=== PATIENT | male | born 1960 | race Caucasian/White ===

== ENCOUNTER 2017-05-22 11:57 | Inpatient (IN) | payer BC ==
--- NOTE | 2017-05-22 12:18 | EDM.PDOC ---
ED HPI GENERAL MEDICAL PROBLEM - General Chief Complaint: Cardiovascular Problem Stated Complaint: HIGH BLOOD PRESSURE Time Seen by Provider: 05/22/17 12:12 Source of Information: Reports: Patient History Limitations: Reports: No Limitations - History of Present Illness INITIAL COMMENTS - FREE TEXT/NARRATIVE: 57-year-old male attends the ED with complaints of persistent nausea and vomiting and diarrhea for the last 3-1/2 days. He shouldn't travel from [place] by air to [place] to work. He believes he may have gotten into some bad food through [employer] a hamburger while upper with double cheese in the airport before he left [place]. The following day he developed acute onset of nausea vomiting and diarrhea. He has been able to keep down small quantities of Bath and water. Diarrhea is profuse and high-volume fluid loss without blood. He's had on average of 10 bowel movements per day 3 days. Of note he is type II diabetic on metformin and glipizide. Blood sugar this morning was 72. He did take some sips of apple juice which didn't stay down. He checked his blood pressure and it's been steadily going up the last 2 days. Currently it's 226/120. Heart rate was 125 it appears to be sinus tachycardia with a first-degree AV block. He is a little lightheaded and dizzy mildly nauseated. He is on losartan for his blood pressure 100 mg a day and he took an extra 50 mg this morning. Diarrhea has continued no blood in he's never vomited any blood. Onset: Sudden Onset Date: 05/19/17 (Sudden onset of nausea vomiting and diarrhea.) Duration: Day(s):, Constant Location: Reports: Abdomen Quality: Reports: Ache, Other Improves with: Reports: None Worsens with: Reports: Eating Context: Reports: Sick Contact. Denies: Activity, Exercise, Lifting, Trauma, Other Associated Symptoms: Reports: Fever/Chills, Malaise, Nausea/Vomiting (Chills but no fever intractable.), Shortness of Breath, Other (Severe diarrhea with large-volume water loss per rectum.). Denies: Chest Pain, Cough, cough w sputum Treatments STEAM HAND: Reports: Other (see below) Other Treatments STEAM HAND: losartan 150 mg - Related Data Allergies Allergy/AdvReac Type Severity Reaction Status Date / Time No Known Allergies Allergy Verified 05/22/17 12:04 Home Meds: Home Meds Lansoprazole [Prevacid] 30 mg PO DAILY 08/03/14 [History] Simvastatin [Zocor] 80 mg PO DAILY 08/03/14 [History] glipiZIDE [Glucotrol XL] 5 mg PO QID 08/03/14 [History] metFORMIN [Glucophage XR] 500 mg PO QID 08/03/14 [History] Past Medical History Cardiovascular History: Reports: Hypertension Musculoskeletal History: Reports: Back Pain, Chronic (Back surgery in the past) , Osteoarthritis (Has had knee surgery.) Endocrine/Metabolic History: Reports: Diabetes, Type II (Diagnosed about 4 years ago and in is on metformin and glipizide.) Social & Family History - Tobacco Use Smoking Status *Q: Never Smoker - Alcohol Use Days Per Week of Alcohol Use: 1 Number of Drinks Per Day: 2 Total Drinks Per Week: 2 - Recreational Drug Use Recreational Drug Use: No - Living Situation & Occupation Living situation: Reports: Occupation: Employed ED ROS GENERAL - Review of Systems Review Of Systems: See Below Constitutional: Reports: Chills, Malaise, Weakness, Fatigue, Weight Loss. Denies: Fever HEENT: Reports: No Symptoms Respiratory: Reports: Shortness of Breath (Mild) Cardiovascular: Reports: Blood Pressure Problem (Blood pressure has been steadily going upwards the last), Lightheadedness. Denies: Chest Pain, Claudication ( 2 days.), Dyspnea on Exertion, Edema, Orthopnea (Mild when standing), Palpitations Endocrine: Reports: Fatigue, Low Glucose GI/Abdominal: Reports: Abdominal Pain (Very mild cramping at times.), Diarrhea ( Large-volume water loss per rectum without blood.), Nausea, Vomiting (Comes and goes intermittent nausea and vomiting for 3 days.) : Reports: Other (Urine is very dark in color and ulloa when he voids.) Musculoskeletal: Reports: Shoulder Pain, Back Pain, Joint Pain (Knees and hips.) Skin: Reports: No Symptoms Neurological: Reports: No Symptoms Psychiatric: Reports: No Symptoms Hematologic/Lymphatic: Reports: No Symptoms Immunologic: Reports: No Symptoms ED EXAM, GENERAL - Physical Exam Exam: See Below Exam Limited By: No Limitations General Appearance: Alert, WD/WN, No Apparent Distress, Other (I can smell ketones on his breath.) Eye Exam: Bilateral Eye: Normal Inspection Throat/Mouth: Normal Teeth (Tongue is dry and coated.), Other Head: Atraumatic, Normocephalic Neck: Normal Inspection, Supple, Non-Tender, Full Range of Motion. No: Carotid Bruit, Lymphadenopathy (L), Lymphadenopathy (R) Respiratory/Chest: Lungs Clear (Mild tachypnea at rest 22-24/m.), Normal Breath Sounds, No Accessory Muscle Use, Chest Non-Tender, Respiratory Distress Cardiovascular: No Edema, No Gallop, No JVD, No Murmur, No Rub, Tachycardia ( Tachycardia of 1 26/m at rest). No: Normal Peripheral Pulses Peripheral Pulses: 1+: Posterior Tibial (L) (Peripherally vasoconstricted), Posterior Tibial (R), Dorsalis Pedis (L), Dorsalis Pedis (R) GI/Abdominal: Normal Bowel Sounds, Soft, Non-Tender, No Organomegaly, No Distention, No Abnormal Bruit, No Mass, Other (No previous abdominal surgery.). No: Rigid, Rebound, Tender (Male) Exam: No Hernia Back Exam: Normal Inspection, Full Range of Motion. No: CVA Tenderness (L), CVA Tenderness (R) Extremities: Normal Inspection, Normal Range of Motion, Non-Tender, No Pedal Edema, Normal Capillary Refill Neurological: Alert, Oriented, CN II-XII Intact, Normal Cognition, Normal Gait Psychiatric: Normal Affect, Normal Mood Skin Exam: Warm, Dry, Intact, Normal Color, No Rash EKG INTERPRETATION EKG Date: 05/22/17 Time: 12:10 Rhythm: Other Rate (Beats/Min): 122 [place]: Normal P-Wave: Present (Borderline first-degree AV block.) QRS: Other (There is a Q-wave in V1 and a near Q-wave in V2 and V3 suggesting an old anteroseptal myocardial infarction. There is poor R-wave progression. There is Q-wave in lead 3 and aVF suggesting possible old inferior wall myocardial infarction.) ST-T: Elevated (Slight ST segment elevation appreciated in leads 3 and aVF.) QT: Normal Course - Vital Signs Last Recorded V/S: Last Vital Signs Temp 36.0 C 05/22/17 12:05 Pulse 87 05/22/17 15:17 Resp 21 H 05/22/17 12:05 BP 171/104 H 05/22/17 15:17 Pulse Ox 98 05/22/17 12:05 - Orders/Labs/Meds Orders: Active Orders 24 hr Category Date Time Status Blood Glucose Check, Bedside [RC] ONETIME Care 05/22/17 12:19 Active EKG 12 Lead [EKG Documentation Completion] [RC] STAT Care 05/22/17 12:15 Active C DIFFICILE BY PCR W/NAP1 [MOLEC] Stat Lab 05/22/17 12:20 Ordered CULTURE BLOOD [BC] Stat Lab 05/22/17 12:50 Received CULTURE BLOOD [BC] Stat Lab 05/22/17 13:00 Received CULTURE STOOL + SHIGATOX [RM] Stat Lab 05/22/17 12:19 Uncollected WBC, STOOL [OP] Stat Lab 05/22/17 12:19 Uncollected Labetalol [Normodyne] 100 mg Med 05/22/17 12:30 Active Sodium Chloride 0.9% [Normal Saline] 80 ml IV TITRATE Sodium Chloride 0.9% [Normal Saline] 1,000 ml Med 05/22/17 12:30 Active IV ASDIRECTED Sodium Chloride 0.9% [Normal Saline] 1,000 ml Med 05/22/17 14:15 Active IV ASDIRECTED Blood Culture x2 Reflex Set [OM.PC] Stat Oth 05/22/17 12:19 Ordered Medication Orders Dextrose/Water (Dextrose 50% In Water) 50 ml IVPUSH ASDIRECTED PRN PRN Reason: Hypoglycemia Doxazosin Mesylate (Cardura) 2 mg PO BEDTIME KELLY Sodium Chloride (Normal Saline) 1,000 mls @ 999 mls/hr IV ASDIRECTED KELLY Last Admin: 05/22/17 12:37 Dose: 999 mls/hr Labetalol HCl 100 mg/ Sodium (Chloride) 100 mls @ 120 mls/hr IV TITRATE KELLY; 2 MG/MIN PRN Reason: Protocol Last Admin: 05/22/17 15:17 Dose: 1 mg/min, 60 mls/hr Titration: 05/22/17 14:40 Dose: 1 mg/min, 60 mls/hr Admin: 05/22/17 12:59 Dose: 1 mg/min, 60 mls/hr Sodium Chloride (Normal Saline) 1,000 mls @ 999 mls/hr IV ASDIRECTED KELLY Last Admin: 05/22/17 14:18 Dose: 999 mls/hr Labetalol HCl 100 mg/ Sodium (Chloride) 100 mls @ 90 mls/hr IV ASDIRECTED KELLY PRN Reason: 1.5 MG/MIN Magnesium Sulfate 2 gm/ Premix 50 mls @ 25 mls/hr IV ONETIME ONE Stop: 05/22/17 17:20 Insulin Aspart (Novolog) 0 unit SUBCUT QIDACANDBED KELLY PRN Reason: Protocol Losartan Potassium (Cozaar) 50 mg PO BID KELLY Pantoprazole Sodium (Protonix) 40 mg PO DAILY KELLY Labs: Laboratory Tests 05/22/17 05/22/17 05/22/17 Range/Units 12:25 12:25 12:25 WBC 4.07 L (4.23-9.07) K/mm3 RBC 4.86 (4.63-6.08) M/mm3 Hgb 15.8 (13.7-17.5) gm/L Hct 44.1 (40.1-51.0) % MCV 90.7 (79.0-92.2) fl MCH 32.5 H (25.7-32.2) pg MCHC 35.8 H (32.2-35.5) g/dl RDW Std Deviation 38.8 (35.1-43.9) fL Plt Count 106 L (163-337) K/mm3 MPV 8.9 L (9.4-12.3) fl Neutrophils % (Manual) 79 H (40-60) % Band Neutrophils % 0 (0-10) % Lymphocytes % (Manual) 19 L (20-40) % Atypical Lymphs % 0 % Monocytes % (Manual) 1 L (2-10) % Eosinophils % (Manual) 0 L (0.8-7.0) % Basophils % (Manual) 1 (0.2-1.2) Platelet Estimate Decreased Plt Morphology Comment See note RBC Morph Comment Normal Sodium 133 L (136-145) mEq/L Potassium 4.1 (3.5-5.1) mEq/L Chloride 91 L (98-107) mEq/L Carbon Dioxide 25 (21-32) mEq/L Anion Gap 21.1 H (5-15) BUN 14 (7-18) mg/dL Creatinine 0.8 (0.7-1.3) mg/dL Est Cr Clr Drug Dosing 111.82 mL/min Estimated GFR (MDRD) > 60 (>60) mL/min BUN/Creatinine Ratio 17.5 (14-18) Glucose 168 H (74-106) mg/dL POC Glucose (70-105) mg/dL Lactic Acid (0.4-2.0) mmol/L Calcium 10.3 H (8.5-10.1) mg/dL Magnesium 1.7 L (1.8-2.4) mg/dl Total Bilirubin 1.3 H (0.2-1.0) mg/dL AST 62 H (15-37) U/L ALT 84 H (16-63) U/L Alkaline Phosphatase 35 L (46-116) U/L Troponin I < 0.017 (0.00-0.056) ng/mL C-Reactive Protein < 0.2 (<1.0) mg/dL Total Protein 7.8 (6.4-8.2) g/dl Albumin 4.4 (3.4-5.0) g/dl Globulin 3.4 gm/dL Albumin/Globulin Ratio 1.3 (1-2) Lipase (73-393) U/L Urine Color (Yellow) Urine Appearance (Clear) Urine pH (5.0-8.0) Ur Specific [place] (1.005-1.030) Urine Protein (Negative) Urine Glucose (UA) (Negative) Urine Ketones (Negative) Urine Occult Blood (Negative) Urine Nitrite (Negative) Urine Bilirubin (Negative) Urine Urobilinogen (0.2-1.0) Ur Leukocyte Esterase (Negative) Ketones 4.56 (0.0-0.3) mM 05/22/17 05/22/17 05/22/17 Range/Units 12:25 12:25 13:09 WBC (4.23-9.07) K/mm3 RBC (4.63-6.08) M/mm3 Hgb (13.7-17.5) gm/L Hct (40.1-51.0) % MCV (79.0-92.2) fl MCH (25.7-32.2) pg MCHC (32.2-35.5) g/dl RDW Std Deviation (35.1-43.9) fL Plt Count (163-337) K/mm3 MPV (9.4-12.3) fl Neutrophils % (Manual) (40-60) % Band Neutrophils % (0-10) % Lymphocytes % (Manual) (20-40) % Atypical Lymphs % % Monocytes % (Manual) (2-10) % Eosinophils % (Manual) (0.8-7.0) % Basophils % (Manual) (0.2-1.2) Platelet Estimate Plt Morphology Comment RBC Morph Comment Sodium (136-145) mEq/L Potassium (3.5-5.1) mEq/L Chloride (98-107) mEq/L Carbon Dioxide (21-32) mEq/L Anion Gap (5-15) BUN (7-18) mg/dL Creatinine (0.7-1.3) mg/dL Est Cr Clr Drug Dosing mL/min Estimated GFR (MDRD) (>60) mL/min BUN/Creatinine Ratio (14-18) Glucose (74-106) mg/dL POC Glucose 142 H (70-105) mg/dL Lactic Acid 2.2 H (0.4-2.0) mmol/L Calcium (8.5-10.1) mg/dL Magnesium (1.8-2.4) mg/dl Total Bilirubin (0.2-1.0) mg/dL AST (15-37) U/L ALT (16-63) U/L Alkaline Phosphatase (46-116) U/L Troponin I (0.00-0.056) ng/mL C-Reactive Protein (<1.0) mg/dL Total Protein (6.4-8.2) g/dl Albumin (3.4-5.0) g/dl Globulin gm/dL Albumin/Globulin Ratio (1-2) Lipase 197 (73-393) U/L Urine Color (Yellow) Urine Appearance (Clear) Urine pH (5.0-8.0) Ur Specific [place] (1.005-1.030) Urine Protein (Negative) Urine Glucose (UA) (Negative) Urine Ketones (Negative) Urine Occult Blood (Negative) Urine Nitrite (Negative) Urine Bilirubin (Negative) Urine Urobilinogen (0.2-1.0) Ur Leukocyte Esterase (Negative) Ketones (0.0-0.3) mM 05/22/17 05/22/17 Range/Units 14:10 14:16 WBC (4.23-9.07) K/mm3 RBC (4.63-6.08) M/mm3 Hgb (13.7-17.5) gm/L Hct (40.1-51.0) % MCV (79.0-92.2) fl MCH (25.7-32.2) pg MCHC (32.2-35.5) g/dl RDW Std Deviation (35.1-43.9) fL Plt Count (163-337) K/mm3 MPV (9.4-12.3) fl Neutrophils % (Manual) (40-60) % Band Neutrophils % (0-10) % Lymphocytes % (Manual) (20-40) % Atypical Lymphs % % Monocytes % (Manual) (2-10) % Eosinophils % (Manual) (0.8-7.0) % Basophils % (Manual) (0.2-1.2) Platelet Estimate Plt Morphology Comment RBC Morph Comment Sodium (136-145) mEq/L Potassium (3.5-5.1) mEq/L Chloride (98-107) mEq/L Carbon Dioxide (21-32) mEq/L Anion Gap (5-15) BUN (7-18) mg/dL Creatinine (0.7-1.3) mg/dL Est Cr Clr Drug Dosing mL/min Estimated GFR (MDRD) (>60) mL/min BUN/Creatinine Ratio (14-18) Glucose (74-106) mg/dL POC Glucose 143 H (70-105) mg/dL Lactic Acid (0.4-2.0) mmol/L Calcium (8.5-10.1) mg/dL Magnesium (1.8-2.4) mg/dl Total Bilirubin (0.2-1.0) mg/dL AST (15-37) U/L ALT (16-63) U/L Alkaline Phosphatase (46-116) U/L Troponin I (0.00-0.056) ng/mL C-Reactive Protein (<1.0) mg/dL Total Protein (6.4-8.2) g/dl Albumin (3.4-5.0) g/dl Globulin gm/dL Albumin/Globulin Ratio (1-2) Lipase (73-393) U/L Urine Color Yellow (Yellow) Urine Appearance Slt cloudy H (Clear) Urine pH 6.5 (5.0-8.0) Ur Specific [place] 1.015 (1.005-1.030) Urine Protein 1+ H (Negative) Urine Glucose (UA) 2+ H (Negative) Urine Ketones 2+ H (Negative) Urine Occult Blood Trace-lysed H (Negative) Urine Nitrite Negative (Negative) Urine Bilirubin Negative (Negative) Urine Urobilinogen 0.2 (0.2-1.0) Ur Leukocyte Esterase Negative (Negative) Ketones (0.0-0.3) mM Meds: Medications Generic Name Dose Route Start Last Admin Trade Name Freq PRN Reason Stop Dose Admin Dextrose/Water 50 ml 05/22/17 15:30 Dextrose 50% In Water IVPUSH ASDIRECTED PRN Hypoglycemia Doxazosin Mesylate 2 mg 05/22/17 15:30 Cardura PO BEDTIME KELLY Sodium Chloride 1,000 mls @ 999 mls/hr 05/22/17 12:30 05/22/17 12:37 Normal Saline IV 999 mls/hr ASDIRECTED KELLY Administration Labetalol HCl 100 mg/ Sodium 100 mls @ 120 mls/hr 05/22/17 12:30 05/22/17 15: 17 Chloride IV 1 mg/min TITRATE KELLY 60 mls/hr Protocol Administration 2 MG/MIN Sodium Chloride 1,000 mls @ 999 mls/hr 05/22/17 14:15 05/22/17 14:18 Normal Saline IV 999 mls/hr ASDIRECTED KELLY Administration Labetalol HCl 100 mg/ Sodium 100 mls @ 90 mls/hr 05/22/17 15:00 Chloride IV ASDIRECTED KELLY 1.5 MG/MIN Magnesium Sulfate 2 gm/ Premix 50 mls @ 25 mls/hr 05/22/17 15:21 IV 05/22/17 17:20 ONETIME ONE Insulin Aspart 0 unit 05/22/17 15:30 Novolog SUBCUT QIDACANDBED KELLY Protocol Losartan Potassium 50 mg 05/22/17 17:00 Cozaar PO BID KELLY Pantoprazole Sodium 40 mg 05/23/17 09:00 Protonix PO DAILY KELLY Discontinued Medications Generic Name Dose Route Start Last Admin Trade Name Freq PRN Reason Stop Dose Admin Labetalol HCl 20 mg 05/22/17 12:24 05/22/17 12:47 Normodyne IVPUSH 05/22/17 12:25 20 mg ONETIME ONE Administration Protocol Ondansetron HCl 4 mg 05/22/17 12:20 05/22/17 12:45 Zofran IVPUSH 05/22/17 12:21 4 mg ONETIME ONE Administration - Radiology Interpretation Free Text/Narrative:: 57-year-old male presents to the ED with a 3-1/2 day history of nausea vomiting and profuse watery diarrhea. He believes he contracted food poisoning in the airport prior to flying out to [place] on Saturday, May 18. Symptoms started the following day and have persisted. He is having between 6 and 12 loose stools per day. He's been on no antibiotics in the last month or 6 weeks. Note he is a type II diabetic controlled with glyburide and metformin. Sugars this morning are low at 72. He did keep down little bit of apple juice this morning. He came to the hospital primarily because of markedly elevated blood pressure with blood pressure going up the last 2 days when he checks. Initial blood pressure here was 226/120. Also tachycardic sinus tachycardia at 1 25/m. Exam suggests volume depletion and I can smell ketones on his breath. Plan normal saline at open for now. May require D5 normal saline depending on bedside blood sugar. We'll start him on labetalol 20 mg IV bolus and then a drip at 1 mg/min. his ECG suggests possible old inferior wall or anteroseptal myocardial infarction therefore troponins will be checked. No chest pain. Stools will be collected for culture and white cells and C. difficile if passed in the department. He is asymptomatic from the high blood pressure with no headache visual changes or vertigo. Patient did take an extra 50 mg of losartan this morning usually takes 100 mg daily. - Re-Assessments/Exams Free Text/Narrative Re-Assessment/Exam: 05/22/17 13:10 bedside blood sugar is 142. Blood pressures come down to 1 7104 with a heart rate of 95 after the 20 mg labetalol bolus. Drip is being started at 1 mg/m at this time. 05/22/17 13:23 labs reveal a white count of 4.07 with differential pending hemoglobin is 15.8 hematocrit is 44.1 platelets 106,000 international units low- normal. Sodium is 133 potassium is 4.1. Chloride is 91 bicarbonate is 25. Anion gap is elevated at 21.1. BUNs 14 creatinine is 0.8 and EGFR is greater than 60. Glucose is 168 in the lab magnesium at 1.7. Bilirubin 1.3 AST 62 ALTs 84 mildly elevated. Troponin was less than 0.017. Serum ketones are pending. Heart rate is 94 BP is 169/102 at this time. 05/22/17 13:50 lactic acid is 2.2. Ketones are still pending. Blood pressure is now 164/87 with a heart rate of 89. 05/22/17 14:10 serum ketones are elevated at 4.56. He has completed his first liter of normal saline I will start second liter of normal saline at open. He likely likely will require close to 4 L of crystalloid to restore his acid base balance. Heart rate remains 95 and BP is 1 7105 at this time. Remains on the labetalol drip at 1 mg/min. ideally he needs to stay in the hospital for the next 12-24 hours to continue to gain control of his elevated blood pressure and restart his acid base balance. I will speak to Dr. Brooks hospitalist in this regard. 05/22/17 14:26 blood sugar at present is 143. Did speak with Dr. Brooks sterilization specialist hospitalist and she will see the patient in the emergency room. Tentatively he will be admitted to the intensive care unit due to being on labetalol drip. 05/22/17 14:52 initial bag of labetalol has finished in terms of the drip. I will therefore reordered at 1.5 mg/m. BP at present is 186/98. Heart rate is 85 and sinus. Departure - Departure Time of Disposition: 15:30 Disposition: Admitted As Inpatient 66 Condition: Fair Clinical Impression: Malignant hypertension, Metabolic acidosis, Gastroenteritis due to food toxin - My Orders Last 24 Hours: My Active Orders 05/22/17 12:15 EKG 12 Lead [EKG Documentation Completion] [RC] STAT 05/22/17 12:19 Blood Glucose Check, Bedside [RC] ONETIME CULTURE STOOL + SHIGATOX [RM] Stat WBC, STOOL [OP] Stat Blood Culture x2 Reflex Set [OM.PC] Stat 05/22/17 12:20 C DIFFICILE BY PCR W/NAP1 [MOLEC] Stat 05/22/17 12:30 Labetalol [Normodyne] 100 mg Sodium Chloride 0.9% [Normal Saline] 80 ml IV TITRATE Sodium Chloride 0.9% [Normal Saline] 1,000 ml IV ASDIRECTED 05/22/17 12:50 CULTURE BLOOD [BC] Stat 05/22/17 13:00 CULTURE BLOOD [BC] Stat 05/22/17 14:15 Sodium Chloride 0.9% [Normal Saline] 1,000 ml IV ASDIRECTED - Assessment/Plan Last 24 Hours: My Active Orders 05/22/17 12:15 EKG 12 Lead [EKG Documentation Completion] [RC] STAT 05/22/17 12:19 Blood Glucose Check, Bedside [RC] ONETIME CULTURE STOOL + SHIGATOX [RM] Stat WBC, STOOL [OP] Stat Blood Culture x2 Reflex Set [OM.PC] Stat 05/22/17 12:20 C DIFFICILE BY PCR W/NAP1 [MOLEC] Stat 05/22/17 12:30 Labetalol [Normodyne] 100 mg Sodium Chloride 0.9% [Normal Saline] 80 ml IV TITRATE Sodium Chloride 0.9% [Normal Saline] 1,000 ml IV ASDIRECTED 05/22/17 12:50 CULTURE BLOOD [BC] Stat 05/22/17 13:00 CULTURE BLOOD [BC] Stat 05/22/17 14:15 Sodium Chloride 0.9% [Normal Saline] 1,000 ml IV ASDIRECTED
[2017-05-22] MEDS ORDERED: Ondansetron 4 MG/2 ML SDV IVPUSH ONE (12:20)
[2017-05-22] MEDS ORDERED: Labetalol 100 MG/20 ML MDV IVPUSH ONE (12:24)
[2017-05-22] MEDS ORDERED: Sodium Chloride 0.9% 1,000 ML IV SCH ×2 (12:30→14:15)
[2017-05-22] MEDS: Labetalol 100 MG in Sodium Chloride 0.9% 80 ML IV SCH ×6 (12:59→22:05)
--- NOTE | 2017-05-22 15:07 | PCM.HP ---
H&P History of Present Illness - General Date of Service: 05/22/17 Admit Problem/Dx: Admission Diagnosis/Problem Admission Diagnosis/Problem Malignant hypertension Source of Information: Patient, Provider, RN Notes Reviewed History Limitations: Reports: No Limitations - History of Present Illness Initial Comments - Free Text/Narative: 57 year old male from [place], [place] presents with complaints of diarrhea associated with nausea and vomiting. Questionable exposure to food toxin from a hamburger at [facility] located in the [facility]. The diarrhea was described as large volume without blood. He has had the aforementioned symptoms for three days. He will be admitted to the ICU for aggressive medical management, the labetalol infusion will be continued. Symptom Onset Date: 05/20/17 Duration of Symptoms: Reports: Day(s):, Getting Worse Location: Reports: Abdomen, Generalized Severity: Moderate Improves with: Reports: None Worsens with: Reports: None - Related Data Allergies/Adverse Reactions: Allergies Allergy/AdvReac Type Severity Reaction Status Date / Time No Known Allergies Allergy Verified 05/22/17 12:04 Home Medications: Home Meds Lansoprazole [Prevacid] 30 mg PO DAILY 08/03/14 [History] Simvastatin [Zocor] 80 mg PO DAILY 08/03/14 [History] glipiZIDE [Glucotrol XL] 5 mg PO BID 08/03/14 [History] metFORMIN [Glucophage XR] 500 mg PO BID 08/03/14 [History] Empagliflozin [Jardiance] 25 mg PO DAILY 05/22/17 [History] Past Medical History Cardiovascular History: Reports: Hypertension Gastrointestinal History: Reports: Other (See Below) Other Gastrointestinal History: ulcer in esophagus Musculoskeletal History: Reports: Back Pain, Chronic (Back surgery in the past) , Osteoarthritis (Has had knee surgery.) Endocrine/Metabolic History: Reports: Diabetes, Type II (Diagnosed about 4 years ago and in is on metformin and glipizide.) Social & Family History - Tobacco Use Smoking Status *Q: Never Smoker - Alcohol Use Days Per Week of Alcohol Use: 1 Number of Drinks Per Day: 2 Total Drinks Per Week: 2 - Recreational Drug Use Recreational Drug Use: No - Living Situation & Occupation Living situation: Reports: Occupation: Employed H&P Review of Systems - Review of Systems: Review Of Systems: See Below General: Reports: Chills, Malaise, Weakness, Fatigue, Decreased Appetite, Weight Loss HEENT: Reports: No Symptoms Pulmonary: Reports: Shortness of Breath Cardiovascular: Reports: No Symptoms Gastrointestinal: Reports: Abdominal Pain, Diarrhea, Decreased Appetite, Nausea , Vomiting Genitourinary: Reports: Frequency, Burning Musculoskeletal: Reports: Neck Pain, Back Pain, Joint Pain Skin: Reports: No Symptoms Psychiatric: Reports: No Symptoms Neurological: Reports: No Symptoms Hematologic/Lymphatic: Reports: No Symptoms Immunologic: Reports: No Symptoms Exam - Exam Exam: See Below - Vital Signs Vital Signs: Last Vital Signs Temp 36.0 C 05/22/17 12:05 Pulse 100 05/22/17 12:59 Resp 21 H 05/22/17 12:05 BP 178/104 H 05/22/17 12:59 Pulse Ox 98 05/22/17 12:05 Weight: 98.43 kg - Exam General: Alert, Oriented, Cooperative HEENT: EOMI, Posterior Pharynx Clear, Pupils Equal, Pupils Reactive Neck: Supple, Trachea Midline Lungs: Normal Respiratory Effort Cardiovascular: Regular Rate, Regular Rhythm GI/Abdominal Exam: Normal Bowel Sounds, Soft, Non-Tender, No Distention (Male) Exam: Deferred Rectal (Males) Exam: Deferred Back Exam: Normal Inspection Extremities: Normal Inspection, No Pedal Edema Skin: Warm Neurological: Cranial Nerves Intact Neuro Extensive - Mental Status: Alert, Oriented x3, Normal Mood/Affect, Normal Cognition, Memory Intact - Patient Data Result Diagrams: 05/22/17 12:25 05/22/17 12:25 *Q Meaningful Use (ADM) - VTE *Q VTE Criteria *Q: - Stroke *Q Stroke Criteria *Q: - AMI *Q AMI Criteria *Q: - Problem List (1) Gastroenteritis due to food toxin SNOMED Code(s): 572956933 ICD Code: K52.1 - TOXIC GASTROENTERITIS AND COLITIS Status: Acute Current Visit: Yes (2) Malignant hypertension SNOMED Code(s): 56581485 ICD Code: I10 - ESSENTIAL (PRIMARY) HYPERTENSION Status: Acute Current Visit: Yes (3) Metabolic acidosis SNOMED Code(s): 12161956 ICD Code: E87.2 - ACIDOSIS Status: Acute Current Visit: Yes (4) Gastroenteritis SNOMED Code(s): 29732001 ICD Code: K52.9 - NONINFECTIVE GASTROENTERITIS AND COLITIS, UNSPECIFIED Status: Acute Current Visit: No (5) Hypertensive urgency SNOMED Code(s): 738796702 ICD Code: I16.0 - HYPERTENSIVE URGENCY Status: Acute Current Visit: Yes (6) Diabetes mellitus SNOMED Code(s): 61044780 ICD Code: E11.9 - TYPE 2 DIABETES MELLITUS WITHOUT COMPLICATIONS Status: Acute Current Visit: Yes (7) Transaminitis SNOMED Code(s): 506896708 ICD Code: R74.0 - NONSPEC ELEV OF LEVELS OF TRANSAMNS & LACTIC ACID DEHYDRGNSE Status: Acute Current Visit: Yes Problem List Initiated/Reviewed/Updated: Yes Orders Last 24hrs: Active Orders 24 hr Category Date Time Status Labetalol [Normodyne] 100 mg Med 05/22/17 15:00 Active Sodium Chloride 0.9% [Normal Saline] 80 ml IV ASDIRECTED Medication Orders Sodium Chloride (Normal Saline) 1,000 mls @ 999 mls/hr IV ASDIRECTED KELLY Last Admin: 05/22/17 12:37 Dose: 999 mls/hr Labetalol HCl 100 mg/ Sodium (Chloride) 100 mls @ 60 mls/hr IV TITRATE KELLY; 1 MG/MIN PRN Reason: Protocol Last Admin: 05/22/17 12:59 Dose: 1 mg/min, 60 mls/hr Sodium Chloride (Normal Saline) 1,000 mls @ 999 mls/hr IV ASDIRECTED KELLY Last Admin: 05/22/17 14:18 Dose: 999 mls/hr Labetalol HCl 100 mg/ Sodium (Chloride) 100 mls @ 90 mls/hr IV ASDIRECTED KELLY PRN Reason: 1.5 MG/MIN Assessment/Plan Comment:: Impression: Gastroenteritis with dehydration; (nausea/vomiting/diarrhea) Diabetes mellitus, type III with elevated ketones Hypertensive urgency Plan: Stool studies IVF Diabetic teaching before DC Art line, continue Labetalol IV Home meds, add alpha molly at bedtime Start diuretic in am Daily labs GI/DVT prophylaxis
[2017-05-22] MEDS ORDERED: Magnesium Sulfate/Water 2 GM in Premix Bag 1 BAG IV ONE (15:21)
[2017-05-22] MEDS ORDERED: 50% Dextrose in Water 50 ML Syringe IVPUSH PRN (15:30)
[2017-05-22] MEDS ORDERED: Doxazosin 2 MG Tab PO SCH (15:37)
[2017-05-22] MEDS ORDERED: Sodium Chloride 0.9% 500 ML ONE ×2 (15:51→21:42)
[2017-05-22] MEDS ORDERED: Bismuth Subsalicylate 262 MG/15 ML Susp 236 ML Bottle PO PRN (16:33)
[2017-05-22] MEDS: Losartan 25 MG Tab PO SCH ×2 (16:46→21:13)
--- NOTE | 2017-05-22 16:46 | PCM.SN ---
- Free Text/Narrative Note: 9-6-17 Start: 1600 End:1615 Arterial line placement Called to ICU for a patient in hypertensive crisis in need for an arterial line for continuous blood pressure monitoring during medication titration. Consent obtained from patient. Chart reviewed. Skin localized with 1% lidocaine 1ml. Site cleansed with chloraprep. Sterile ultrasound sheath used with probe to detect the left radial artery. 20 gauge arterial line with guide wire used to access the artery under ultrasound guidance x1 attempt. Good pulsatile blood return. Attached to primed (0.9%NS) arterial line tubing and flushes well. Sterile tegaderm placed over site and secure with tape. Transducer leveled and monitor zeroed to achieve accurate readings. Patient tolerated procedure well. Jose Hall CRNA
[2017-05-22] MEDS: Insulin Aspart 100 Units/ML 3 ML Pen SUBCUT SCH ×3 (17:38→21:10)
[2017-05-22] MEDS: Saccharomyces Boulardii (Probiotic) 250 MG Cap PO SCH ×2 (17:39→21:14)
[2017-05-22] MEDS ORDERED: Sodium Chloride 0.9% 500 ML IV SCH (22:00)
[2017-05-22] MEDS ORDERED: traZODone 50 MG Tab PO PRN (22:11)
[2017-05-23] MEDS ORDERED: Aluminum Hydroxide/Magnesium Hydroxide/Simethicone Susp 30 ML Cup PO PRN (05:36)
[2017-05-23] MEDS: Insulin Aspart 100 Units/ML 3 ML Pen SUBCUT SCH (06:31)
[2017-05-23] MEDS: Losartan 25 MG Tab PO SCH (08:13)
[2017-05-23 08:24] VITALS: BP 173/99
[2017-05-23] MEDS ORDERED: Hydrochlorothiazide 25 MG Tab PO SCH (09:00)
[2017-05-23] MEDS ORDERED: Pantoprazole 40 MG Tab.CR PO SCH (09:00)
[2017-05-23] MEDS ORDERED: METFORMIN 500 MG PO SCH (09:00)
[2017-05-23] MEDS ORDERED: Saccharomyces Boulardii (Probiotic) 250 MG Cap PO SCH (09:00)
[2017-05-23] MEDS ORDERED: Metoprolol Tartrate 50 MG Tab PO SCH (09:00)
[2017-05-23] MEDS ORDERED: glipiZIDE 5 MG Tab.ER PO SCH (09:00)
--- NOTE | 2017-05-23 09:11 | CR ---
Chest: Two views of the chest were obtained. Comparison: No previous chest x-ray. Heart size and mediastinum are normal. Lungs are clear. Bony structures are within normal limits for the patient's age. Impression: 1. Nothing acute is appreciated on two-view chest x-ray. Diagnostic code #1
[2017-05-23] MEDS ORDERED: Aspirin 325 MG Tab.EC PO ONE (09:30)
--- NOTE | 2017-05-23 10:12 | PCM.DCSUM1 ---
Discharge Summary - Hospital Course Free Text/Narrative:: 57 year old male from [place], [place] presents with complaints of diarrhea associated with nausea and vomiting. Questionable exposure to food toxin from a hamburger at [employer] located in the [place], 3 days ago. The diarrhea was described as large volume without blood. He has had the aforementioned symptoms for three days. He will be admitted to the ICU for aggressive medical management of hypertensive urgency, the labetalol infusion will be continued (was started in ED). He was hydrated with IVF/bolused in ED. Labetalol drip contined until midnight then stopped. Pressures maintained 140-150's systolic. He was started on HCTZ and metoprolol along with home dose of cozzar. CXR was unremarkable, serial troponins were negative. EKG's were unchanged. A1C is 6.5. He is afebrile. Stool is negative for c-diff. He is anxious for discharge this morning. He states he checks his b/p several times daily along with his glucose. He will be discharged home today with f/up with PCP early next week. By hx obtained: he states he has had normal echocardiogram, US of liver and renal within the last few months with his PCP in [place]. He will be in [place] for work until July. - Discharge Data Discharge Date: 05/23/17 (admit date 05/22/17) Discharge Disposition: Home, Self-Care 01 Condition: Good - Discharge Diagnosis/Problem(s) (1) Hypertensive urgency SNOMED Code(s): 041948075 ICD Code: I16.0 - HYPERTENSIVE URGENCY Status: Acute Priority: High (2) Gastroenteritis due to food toxin SNOMED Code(s): 340167607 ICD Code: K52.1 - TOXIC GASTROENTERITIS AND COLITIS Status: Acute Priority: High (3) Transaminitis SNOMED Code(s): 557955778 ICD Code: R74.0 - NONSPEC ELEV OF LEVELS OF TRANSAMNS & LACTIC ACID DEHYDRGNSE Status: Chronic Priority: High (4) Diabetes mellitus SNOMED Code(s): 14673299 ICD Code: E11.9 - TYPE 2 DIABETES MELLITUS WITHOUT COMPLICATIONS Status: Chronic Priority: Medium Qualifiers: Diabetes mellitus type: type 2 Diabetes mellitus complication status: without complication Diabetes mellitus long term care administrator insulin use: unspecified penitentiary insulin use status Qualified Code(s): E11.9 - Type 2 diabetes mellitus without complications - Patient Summary/Data Operative Procedure(s) Performed: None Complications: None Consults: None Labs Pending at D/C: None Recommended Follow-up Testing/Procedures: None Planned Operative Procedure(s) after DC: None Hospital Course: As above - Patient Instructions Diet: Heart Healthy Diet, Diabetic Diet Activity: As Tolerated Driving: May Drive Today Showering/Bathing: May Shower Notify Provider of: Fever, Increased Pain, Nausea and/or Vomiting - Discharge Plan Prescriptions/Med Rec: Metoprolol Tartrate [Lopressor] 25 mg PO Q12HR #60 tablet Doxazosin [Cardura] 2 mg PO BEDTIME #30 tablet Hydrochlorothiazide 25 mg PO DAILY #30 tablet Home Medications: Home Meds Lansoprazole [Prevacid] 30 mg PO DAILY 08/03/14 [History] Simvastatin [Zocor] 80 mg PO DAILY 08/03/14 [History] glipiZIDE [Glucotrol XL] 5 mg PO BID 08/03/14 [History] metFORMIN [Glucophage XR] 500 mg PO BID 08/03/14 [History] Empagliflozin [Jardiance] 25 mg PO DAILY 05/22/17 [History] Doxazosin [Cardura] 2 mg PO BEDTIME #30 tablet 05/23/17 [Rx] Hydrochlorothiazide 25 mg PO DAILY #30 tablet 05/23/17 [Rx] Losartan [Cozaar] 100 mg PO DAILY 05/23/17 [History] Metoprolol Tartrate [Lopressor] 25 mg PO Q12HR #60 tablet 05/23/17 [Rx] Patient Handouts: Viral Gastroenteritis, Adult, [id number], Hypertension, [id number], Nausea, Adult, Lmhh-[id number], Diarrhea, Adult, Fddo-mo-Dkaa Forms: ED Department Discharge Referrals: Harry George [Physician] - 05/27/17 11:30 am (Hospital follow-up. [facility] - Discharge Summary/Plan Comment DC Time >30 min.: Yes (40 min) - General Info Date of Service: 05/23/17 Admission Dx/Problem (Free Text: Admission Diagnosis/Problem Admission Diagnosis/Problem Malignant hypertension Doing well; did not sleep much overnight. Denies CP, SOB, dyspnea, abdominal or back pain. No headache. No n/v. Diarrhea has slowed/resolved. Overall he feels much better. Requests to be discharged andrew today. Functional Status: Reports: Pain Controlled, Tolerating Diet, Ambulating, Urinating. Denies: New Symptoms - Review of Systems General: Reports: Fatigue. Denies: Fever, Chills, Night Sweats HEENT: Reports: No Symptoms Pulmonary: Reports: No Symptoms. Denies: Shortness of Breath, Cough Cardiovascular: Reports: No Symptoms. Denies: Chest Pain, Palpitations, Dyspnea on Exertion, Edema, Lightheadedness Gastrointestinal: Reports: No Symptoms. Denies: Diarrhea, Nausea, Vomiting Genitourinary: Reports: No Symptoms Neurological: Reports: No Symptoms Psychiatric: Reports: No Symptoms - Patient Data Vitals - Most Recent: Last Vital Signs Temp 98 F 05/23/17 04:00 Pulse 84 05/23/17 08:11 Resp 19 05/23/17 04:00 BP 173/99 H 05/23/17 08:13 Pulse Ox 99 05/23/17 04:00 Weight - Most Recent: 209 lb 8 oz I&O - Last 24 hours: Intake & Output 05/22/17 05/23/17 05/23/17 22:59 06:59 14:59 Intake Total 780 1457 Output Total 1100 Balance 780 357 Lab Results - Last 24 hrs: Laboratory Results - last 24 hr 05/22/17 05/22/17 05/22/17 Range/Units 16:41 21:09 23:00 WBC (4.23-9.07) K/mm3 RBC (4.63-6.08) M/mm3 Hgb (13.7-17.5) gm/L Hct (40.1-51.0) % MCV (79.0-92.2) fl MCH (25.7-32.2) pg MCHC (32.2-35.5) g/dl RDW Std Deviation (35.1-43.9) fL Plt Count (163-337) K/mm3 MPV (9.4-12.3) fl Neut % (Auto) (34.0-67.9) % Lymph % (Auto) (21.8-53.1) % [place] % (Auto) (5.3-12.2) % Eos % (Auto) (0.8-7.0) Baso % (Auto) (0.1-1.2) % Neut # (Auto) (1.78-5.38) K/mm3 Lymph # (Auto) (1.32-3.57) K/mm3 [place] # (Auto) (0.30-0.82) K/mm3 Eos # (Auto) (0.04-0.54) K/mm3 Baso # (Auto) (0.01-0.08) K/mm3 Manual Slide Review Sodium (136-145) mEq/L Potassium (3.5-5.1) mEq/L Chloride (98-107) mEq/L Carbon Dioxide (21-32) mEq/L Anion Gap (5-15) BUN (7-18) mg/dL Creatinine (0.7-1.3) mg/dL Est Cr Clr Drug Dosing mL/min Estimated GFR (MDRD) (>60) mL/min BUN/Creatinine Ratio (14-18) Glucose (74-106) mg/dL POC Glucose 130 H 150 H (70-105) mg/dL Hemoglobin A1c (4.50-6.20) % Calcium (8.5-10.1) mg/dL Magnesium (1.8-2.4) mg/dl Troponin I (0.00-0.056) ng/mL C-Reactive Protein (<1.0) mg/dL C.difficile 027-NAP1-B1 Presumptive negative C. difficile Tox (PCR) Negative 05/23/17 05/23/17 05/23/17 Range/Units 06:23 06:23 06:23 WBC 2.94 L (4.23-9.07) K/mm3 RBC 4.19 L (4.63-6.08) M/mm3 Hgb 13.6 L (13.7-17.5) gm/L Hct 39.4 L (40.1-51.0) % MCV 94.0 H (79.0-92.2) fl MCH 32.5 H (25.7-32.2) pg MCHC 34.5 (32.2-35.5) g/dl RDW Std Deviation 40.4 (35.1-43.9) fL Plt Count 85 L (163-337) K/mm3 MPV 9.0 L (9.4-12.3) fl Neut % (Auto) 64.0 (34.0-67.9) % Lymph % (Auto) 22.1 (21.8-53.1) % [place] % (Auto) 11.9 (5.3-12.2) % Eos % (Auto) 1.0 (0.8-7.0) Baso % (Auto) 0.7 (0.1-1.2) % Neut # (Auto) 1.88 (1.78-5.38) K/mm3 Lymph # (Auto) 0.65 L (1.32-3.57) K/mm3 [place] # (Auto) 0.35 (0.30-0.82) K/mm3 Eos # (Auto) 0.03 L (0.04-0.54) K/mm3 Baso # (Auto) 0.02 (0.01-0.08) K/mm3 Manual Slide Review Abnormal smear Sodium 137 (136-145) mEq/L Potassium 3.6 (3.5-5.1) mEq/L Chloride 99 (98-107) mEq/L Carbon Dioxide 27 (21-32) mEq/L Anion Gap 14.6 (5-15) BUN 11 (7-18) mg/dL Creatinine 0.8 (0.7-1.3) mg/dL Est Cr Clr Drug Dosing 111.82 mL/min Estimated GFR (MDRD) > 60 (>60) mL/min BUN/Creatinine Ratio 13.8 L (14-18) Glucose 158 H (74-106) mg/dL POC Glucose (70-105) mg/dL Hemoglobin A1c 6.50 H (4.50-6.20) % Calcium 9.0 (8.5-10.1) mg/dL Magnesium 2.0 (1.8-2.4) mg/dl Troponin I < 0.017 (0.00-0.056) ng/mL C-Reactive Protein < 0.2 (<1.0) mg/dL C.difficile 027-NAP1-B1 C. difficile Tox (PCR) 05/23/17 Range/Units 06:29 WBC (4.23-9.07) K/mm3 RBC (4.63-6.08) M/mm3 Hgb (13.7-17.5) gm/L Hct (40.1-51.0) % MCV (79.0-92.2) fl MCH (25.7-32.2) pg MCHC (32.2-35.5) g/dl RDW Std Deviation (35.1-43.9) fL Plt Count (163-337) K/mm3 MPV (9.4-12.3) fl Neut % (Auto) (34.0-67.9) % Lymph % (Auto) (21.8-53.1) % [place] % (Auto) (5.3-12.2) % Eos % (Auto) (0.8-7.0) Baso % (Auto) (0.1-1.2) % Neut # (Auto) (1.78-5.38) K/mm3 Lymph # (Auto) (1.32-3.57) K/mm3 [place] # (Auto) (0.30-0.82) K/mm3 Eos # (Auto) (0.04-0.54) K/mm3 Baso # (Auto) (0.01-0.08) K/mm3 Manual Slide Review Sodium (136-145) mEq/L Potassium (3.5-5.1) mEq/L Chloride (98-107) mEq/L Carbon Dioxide (21-32) mEq/L Anion Gap (5-15) BUN (7-18) mg/dL Creatinine (0.7-1.3) mg/dL Est Cr Clr Drug Dosing mL/min Estimated GFR (MDRD) (>60) mL/min BUN/Creatinine Ratio (14-18) Glucose (74-106) mg/dL POC Glucose 146 H (70-105) mg/dL Hemoglobin A1c (4.50-6.20) % Calcium (8.5-10.1) mg/dL Magnesium (1.8-2.4) mg/dl Troponin I (0.00-0.056) ng/mL C-Reactive Protein (<1.0) mg/dL C.difficile 027-NAP1-B1 C. difficile Tox (PCR) YOBANI Results - Last 24 hrs: Microbiology 05/22/17 23:00 Rotavirus Antigen - Final Stool / Feces - Stool, Liquid NEGATIVE ROTAVIRUS ANTIGEN 05/22/17 23:00 Stool for WBCs - Final Stool / Feces - Stool, Liquid NO WBC SEEN Med Orders - Current: Current Medications Discontinued Medications Al Hydroxide/Mg Hydroxide (Mag-Al Plus) 30 ml PO Q4H PRN PRN Reason: Heartburn Last Admin: 05/23/17 05:10 Dose: 30 ml Aspirin (Ecotrin) 650 mg PO ONETIME ONE Stop: 05/23/17 09:31 Bismuth Subsalicylate (Pepto Bismol) 15 ml PO QID PRN PRN Reason: Diarrhea Dextrose/Water (Dextrose 50% In Water) 50 ml IVPUSH ASDIRECTED PRN PRN Reason: Hypoglycemia Doxazosin Mesylate (Cardura) 2 mg PO BEDTIME KELLY Last Admin: 05/22/17 16:46 Dose: 2 mg Glipizide (Glucotrol Xl) 5 mg PO BID KELLY Hydrochlorothiazide (Hydrochlorothiazide) 25 mg PO DAILY KELLY Last Admin: 05/23/17 08:11 Dose: 25 mg Sodium Chloride (Normal Saline) 1,000 mls @ 999 mls/hr IV ASDIRECTED KELLY Last Admin: 05/22/17 12:37 Dose: 999 mls/hr Labetalol HCl 100 mg/ Sodium (Chloride) 100 mls @ 120 mls/hr IV TITRATE KELLY; 2 MG/MIN PRN Reason: Protocol Last Admin: 05/22/17 15:17 Dose: 1 mg/min, 60 mls/hr Sodium Chloride (Normal Saline) 1,000 mls @ 999 mls/hr IV ASDIRECTED KELLY Last Admin: 05/22/17 14:18 Dose: 999 mls/hr Labetalol HCl 100 mg/ Sodium (Chloride) 100 mls @ 90 mls/hr IV ASDIRECTED KELLY PRN Reason: 1.5 MG/MIN Last Infusion: 05/23/17 00:44 Dose: 0 mg/min, 0 mls/hr Magnesium Sulfate 2 gm/ Premix 50 mls @ 25 mls/hr IV ONETIME ONE Stop: 05/22/17 17:20 Last Admin: 05/22/17 16:43 Dose: 25 mls/hr Sodium Chloride (Normal Saline) Confirm Administered Dose 500 mls @ as directed .ROUTE .STK-MED ONE Stop: 05/22/17 15:52 Last Admin: 05/22/17 16:34 Dose: Not Given Sodium Chloride (Normal Saline) Confirm Administered Dose 500 mls @ as directed .ROUTE .STK-MED ONE Stop: 05/22/17 21:43 Last Admin: 05/22/17 23:24 Dose: Not Given Sodium Chloride (Normal Saline) 500 mls @ 20 mls/hr IV ASDIRECTED [facility] Last Admin: 05/22/17 22:50 Dose: 20 mls/hr Insulin Aspart (Novolog) 0 unit SUBCUT QIDACANDBED [facility] PRN Reason: Protocol Last Admin: 05/23/17 06:31 Dose: Not Given Labetalol HCl (Normodyne) 20 mg IVPUSH ONETIME ONE PRN Reason: Protocol Stop: 05/22/17 12:25 Last Admin: 05/22/17 12:47 Dose: 20 mg Losartan Potassium (Cozaar) 50 mg PO BID [facility] Last Admin: 05/23/17 08:13 Dose: 50 mg Metoprolol Tartrate (Lopressor) 50 mg PO Q12HR [facility] Last Admin: 05/23/17 08:11 Dose: 50 mg Non-Formulary Medication (Metformin) 500 mg PO BID [facility] Ondansetron HCl (Zofran) 4 mg IVPUSH ONETIME ONE Stop: 05/22/17 12:21 Last Admin: 05/22/17 12:45 Dose: 4 mg Pantoprazole Sodium (Protonix) 40 mg PO DAILY [facility] Last Admin: 05/23/17 08:13 Dose: 40 mg Saccharomyces Boulardii (Florastor) 250 mg PO TID [facility] Last Admin: 05/22/17 21:14 Dose: 250 mg Saccharomyces Boulardii (Florastor) 250 mg PO BID [facility] Last Admin: 05/23/17 08:15 Dose: 250 mg Trazodone HCl (Trazodone) 50 mg PO BEDTIME PRN PRN Reason: Sleep Last Admin: 05/22/17 22:26 Dose: 50 mg - Exam Quality Assessment: Reports: DVT Prophylaxis General: Reports: Alert, Oriented, No Acute Distress HEENT: Reports: Pupils Equal, EOMI, Mucous Membr. Moist/[place] Neck: Reports: Supple Lungs: Reports: Clear to Auscultation, Normal Respiratory Effort Cardiovascular: Reports: Regular Rate, Regular Rhythm, No Murmurs GI/Abdominal Exam: Normal Bowel Sounds, Soft, Non-Tender (Male) Exam: Deferred Rectal (Males) Exam: Deferred Extremities: Normal Inspection, No Pedal Edema, Normal Capillary Refill Neurological: Reports: No New Focal Deficit Psy/Mental Status: Reports: Alert, Normal Affect, Normal Mood *Q Meaningful Use (DIS) - VTE *Q VTE Criteria *Q: - Stroke *Q Stroke Criteria *Q: - AMI *Q AMI Criteria *Q:
== END 2017-05-23 09:37 | disposition home or self-care (01) | DRG 199 ==
LOC: JD.ED 11:57 → JD.ICU 14:24 → UNDOADMIN 14:38 → JD.ICU 14:38
PROVIDERS: ADMIT Internal Medicine Cardiovascular Disease; ATTEND Internal Medicine Cardiovascular Disease
PROC: 03HC33Z Insertion of Infusion Device into Left Radial Artery, Percutaneous Approach (ICD-10-PCS; principal; 2017-05-22)
DX: I16.0 Hypertensive urgency (principal); E87.2 Acidosis; Z79.899 Other long term (current) drug therapy; A08.4 Viral intestinal infection, unspecified; D61.818 Other pancytopenia; K52.1 Toxic gastroenteritis and colitis; E11.9 Type 2 diabetes mellitus without complications; Z79.84 Long term (current) use of oral hypoglycemic drugs; R74.0 Nonspecific elevation of levels of transaminase and lactic acid dehydrogenase [LDH]; M19.90 Unspecified osteoarthritis, unspecified site; E86.0 Dehydration
CPT/HCPCS: 36415; 36620; 71020; 71020-26; 80048; 80053; 80306; 81001; 82009; 82962; 83036; 83605; 83690; 83735; 84484; 85025; 86140; 87040; 87046; 87425; 87427; 87493; 89055; 93005; 96361; 96365; 96374; 96375; 99285; 99285-25; A9270-GY; J1815-GY; J2405; J3475; J7030; J7040